=== PATIENT | female | born 1995 | race Asian ===

== ENCOUNTER 2023-10-22 22:56 | Emergency (ER) | payer SELFPAY ==
[~2023-10-22] VITALS: Ht 162.6 cm; Wt 62.0 kg
[2023-10-22 23:03] VITALS: O2SAT 99
[2023-10-22] MEDS: QUETIAPINE FUMARATE 25MG TABLET PO ONE (23:19)
[2023-10-22] MEDS: LORAZEPAM 1MG TABLET PO ONE (23:19)
[2023-10-23 02:38] VITALS: BP 144/74; PULSE 54; RESP 18; TEMP 98.3
== END 2023-10-22 23:28 ==
LOC: ER 22:56
DX: F41.0 Panic disorder [episodic paroxysmal anxiety] (principal); F41.9 Anxiety disorder, unspecified; F31.9 Bipolar disorder, unspecified; F20.9 Schizophrenia, unspecified; F19.90 Other psychoactive substance use, unspecified, uncomplicated; Z91.148 Patient's other noncompliance with medication regimen for other reason
CPT/HCPCS: 99283

== ENCOUNTER 2023-10-23 11:25 | Emergency (ER) | payer MEDICAID ==
[~2023-10-23] VITALS: Ht 160 cm; Wt 55.0 kg
[2023-10-23 11:40] VITALS: BP 124/89; RESP 18; TEMP 98.8; O2SAT 100
[2023-10-23 11:57] VITALS: PULSE 109
== END 2023-10-23 14:39 | disposition home or self-care (01) ==
LOC: ER 11:25
DX: Z76.89 Persons encountering health services in other specified circumstances (principal); F41.9 Anxiety disorder, unspecified; F31.9 Bipolar disorder, unspecified; F20.9 Schizophrenia, unspecified; F19.90 Other psychoactive substance use, unspecified, uncomplicated; Z88.8 Allergy status to other drugs, medicaments and biological substances
CPT/HCPCS: 99281